=== PATIENT | female | born 1980 | race Caucasian/White ===

== ENCOUNTER → 2018-03-23 15:17 | Outpatient (CLI) | payer OTHER, SELFPAY | DX: Z23 Encounter for immunization (principal) | CPT/HCPCS: 90471; 90686 ==

== ENCOUNTER → 2018-08-03 07:39 | Outpatient (CLI) | payer OTHER, SELFPAY ==
--- NOTE | 2018-08-03 07:42 | DI.US.S_ITS ---
PROCEDURE: US THYROID INDICATIONS: NODULE TECHNIQUE: Real-time scanning was performed of the thyroid gland, with image documentation. COMPARISON: None. FINDINGS: Right: Thyroid lobe measures 5.9 x 2.6 x 2.8 cm, and is diffusely heterogeneous in echotexture. Left: Thyroid lobe measures 5.3 x 2.1 x 2.1 cm, and is diffusely heterogeneous in echotexture. Small hypoechoic nodule seen adjacent and separate from the inferior pole of the left thyroid measuring 1.5 x 0.8 x 0.7 cm. Isthmus: 8.6 mm thick. IMPRESSION: Diffusely enlarged and heterogeneous appearance of the thyroid suggestive of multinodular goiter. Correlate clinically. Hypoechoic solid nodule adjacent to the inferior pole of the left thyroid gland which could represent a parathyroid adenoma. Recommend correlation with serum calcium levels and if indicated 4D parathyroid CT could be performed for further characterization. Dictated by: Noam Arredondo [facility] Interpreted: Uzma De Leon MD on 08/03/2018 at 9:30 Approved by: Uzma De Leon MD, PhD on 08/03/2018 at 11:08
[2018-08-03 08:43] LABS: Add Manual Diff / Slide Review NO; Basophils Absolute Auto 0 /uL (0-100); Basophils Percent Auto 0.3 % (0-2); Eosinophils Absolute Auto 400 /uL (0-450); Eosinophils Percent Auto 4.2 % (2-4); Hematocrit 45.1 % (36-46); Hemoglobin 14.7 g/dL (12.0-16.0); Lymphocytes Absolute Auto 3000 /uL (1100-4500); Mean Corpuscular HGB Conc 32.6 % (30-36); Mean Corpuscular Hemoglobin 27.6 PG (26-34); Mean Corpuscular Volume 84.5 fL (80-100); Monocytes Absolute Auto 700 /uL (0-900); Monocytes Percent Auto 6.8 % (3-14); Neutrophils Absolute Auto 5900 /uL (1500-7000); Neutrophils Percent Auto 58.7 % (50-75); Platelet Count 385 X10^3/uL (150-400); Red Blood Cell Count 5.34 X10^6/uL (4.0-5.2); Red Cell Distribution Width 13.5 % (11.6-14.8)
[2018-08-03 09:02] LABS: Alanine Aminotransferase 30 IU/L (9-52); Albumin Globulin Ratio 1.3 (1.0-2.8); Alkaline Phosphatase 71 U/L (38-126); Aspartate Aminotransferase 25 IU/L (14-36); Bilirubin Total 0.7 mg/dL (0.2-1.3); Blood Urea Nitrogen 13 mg/dL (7-17); Calcium 9.1 mg/dL (8.4-10.2); Carbon Dioxide 24 mmol/L (22-32); Chloride 104 mmol/L (98-107); Cholesterol 157 mg/dL (140-199); Estimated Glomerular Filt Rate > 60.0 mL/min (>60); Globulin 3.1 g/dL (1.7-4.1); Glucose 186 mg/dL (70-100); HDL Cholesterol 40 mg/dL (40-60); HEMOLYSIS 43 (0-50); LDL Cholesterol Calculated 96 mg/dL (<100); Potassium 4.3 mmol/L (3.4-5.1); Sodium 137 mmol/L (137-145); Total Protein 7.1 g/dL (6.3-8.2); Triglycerides 104 mg/dL (35-150)
[2018-08-03 09:19] LABS: Creatinine Urine Random 90.9 mg/dL
[2018-08-03 09:25] LABS: Microalbumi Creatinin Ratio Ur 6.6 ug/mg CR (<30); Microalbumin Urine Random < 0.6 mg/dL (0-1.6)
[2018-08-03 09:26] LABS: Hemoglobin A1C% w Est Avg Glu 8.2 % (4.0-6.0)
[2018-08-03 09:34] LABS: Free T4, Direct Thyroxine 2.67 ng/dL (0.78-2.19)
[2018-08-03 09:47] LABS: Thyroid Stimulating Hormone < 0.02 uIU/mL (0.47-4.68)
== END ==
PROVIDERS: PCP Family Medicine; Visit Provider Family Medicine
DX: E04.1 Nontoxic single thyroid nodule (principal); E11.9 Type 2 diabetes mellitus without complications; Z13.220 Encounter for screening for lipoid disorders; Z13.29 Encounter for screening for other suspected endocrine disorder; Z51.81 Encounter for therapeutic drug level monitoring
CPT/HCPCS: 36415; 76536; 80053; 80061; 82043; 82570; 83036; 84439; 84443; 84481; 85025

== ENCOUNTER → 2019-04-07 16:02 | Outpatient (CLI) | payer OTHER, SELFPAY | PROVIDERS: PCP Family Medicine; Visit Provider Physician Assistant | DX: L02.91 Cutaneous abscess, unspecified (principal) | CPT/HCPCS: 87070; 87075; 87077; 87147; 87186; 87205 ==

== ENCOUNTER → 2019-05-01 11:06 | Outpatient (CLI) | payer OTHER, SELFPAY | PROVIDERS: PCP Family Medicine | DX: Z23 Encounter for immunization (principal) | CPT/HCPCS: 90471; 90686 ==

== ENCOUNTER → 2019-05-01 12:40 | Outpatient (CLI) | payer OTHER, SELFPAY | PROVIDERS: PCP Family Medicine | DX: Z23 Encounter for immunization (principal) | CPT/HCPCS: 90471; 90686 ==

== ENCOUNTER → 2019-05-30 07:26 | Outpatient (CLI) | payer OTHER, SELFPAY ==
[2019-05-30 08:31] LABS: Hemoglobin A1C% w Est Avg Glu 9.6 % (4.0-6.0)
[2019-05-30 08:35] LABS: Alanine Aminotransferase 14 IU/L (<35); Albumin 4.5 g/dL (3.5-5.0); Albumin Globulin Ratio 1.4 (1.0-2.8); Alkaline Phosphatase 78 U/L (38-126); Aspartate Aminotransferase 20 IU/L (14-36); BUN Creatinine Ratio 22.9 (6-22); Bilirubin Total 0.4 mg/dL (0.2-1.3); Blood Urea Nitrogen 16 mg/dL (7-17); Calcium 8.7 mg/dL (8.4-10.2); Carbon Dioxide 22 mmol/L (22-32); Chloride 99 mmol/L (98-107); Cholesterol 250 mg/dL (140-199); Estimated Glomerular Filt Rate > 60.0 mL/min (>60); Globulin 3.3 g/dL (1.7-4.1); Glucose 214 mg/dL (70-100); HDL Cholesterol 56 mg/dL (40-60); HEMOLYSIS < 15 (0-50); LDL Cholesterol Calculated 170 mg/dL (<100); Potassium 4.3 mmol/L (3.4-5.1); Sodium 134 mmol/L (137-145); Total Protein 7.8 g/dL (6.3-8.2); Triglycerides 120 mg/dL (35-150)
[2019-05-30 09:06] LABS: Free T3, Triiodothyronine Free 1.55 pg/mL (2.77-5.27); Free T4, Direct Thyroxine 0.09 ng/dL (0.78-2.19)
== END ==
PROVIDERS: PCP Family Medicine; Visit Provider Family Medicine
DX: E03.9 Hypothyroidism, unspecified (principal); E11.9 Type 2 diabetes mellitus without complications
CPT/HCPCS: 36415; 80053; 80061; 83036; 84439; 84443; 84481

== ENCOUNTER → 2020-10-25 13:51 | Outpatient (CLI) | payer OTHER, SELFPAY ==
[2020-10-25] MEDS: COVID-19 VACC, Ad26(JANSSEN)/PF 0.5 ML IM (13:55)
== END ==
PROVIDERS: PCP Family Medicine; Visit Provider Internal Medicine
DX: Z23 Encounter for immunization (principal)
CPT/HCPCS: 0031A; 91303